=== PATIENT | male | born 1970 | race African-American/Black ===

== ENCOUNTER 2023-08-15 12:40 | Emergency (ER) | payer SELFPAY ==
[2023-08-15 13:13] VITALS: BP 125/75; PULSE 83; RESP 18; TEMP 98.7; BMI 22.4
[2023-08-15] MEDS ORDERED: ACETAMINOPHEN 500 MG TABLET (FP) PO ONE (13:40)
[2023-08-15] MEDS ORDERED: ACETAMINOPHEN 500 MG TABLET (FP) ONE (13:46)
== END 2023-08-15 18:19 | disposition home or self-care (01) ==
LOC: JER 12:40
DX: M25.551 Pain in right hip (principal); M25.552 Pain in left hip; G89.29 Other chronic pain; W19.XXXA Unspecified fall, initial encounter
CPT/HCPCS: 70450-TC; 73502-TC-RT-FY; 99284-25

== ENCOUNTER 2023-08-16 19:01 | Emergency (ER) | payer SELFPAY ==
[2023-08-16 19:22] VITALS: BP 116/67; PULSE 78; RESP 18; TEMP 97.8; BMI 22.4
[2023-08-16] MEDS ORDERED: ACETAMINOPHEN 500 MG TABLET (FP) PO ONE (19:50)
[2023-08-16] MEDS ORDERED: KETOROLAC TROMETHAMINE 30 MG/1 ML VIAL IM ONE (19:51)
[2023-08-16] MEDS ORDERED: KETOROLAC TROMETHAMINE 30 MG/1 ML VIAL ONE (20:11)
[2023-08-16] MEDS ORDERED: ACETAMINOPHEN 325 MG TABLET (FP) ONE (20:11)
[2023-08-16] MEDS ORDERED: LIDOCAINE 5% TOPICAL PATCH TP ONE (20:42)
[2023-08-16] MEDS ORDERED: LIDOCAINE 4% PATCH TP ONE (20:47)
== END 2023-08-16 22:30 | disposition home or self-care (01) ==
LOC: JER 19:01
PROC: 3E0233Z Introduction of Anti-inflammatory into Muscle, Percutaneous Approach (ICD-10-PCS; principal; 2023-08-16)
DX: M25.551 Pain in right hip (principal); M25.571 Pain in right ankle and joints of right foot; M79.18 Myalgia, other site; W10.9XXD Fall (on) (from) unspecified stairs and steps, subsequent encounter; Y93.01 Activity, walking, marching and hiking; Y92.009 Unspecified place in unspecified non-institutional (private) residence as the place of occurrence of the external cause
CPT/HCPCS: 99284-25